=== PATIENT | male | born 1990 | race Caucasian/White ===

== ENCOUNTER 2024-09-19 11:51 | Outpatient (POV) | payer BC, SELFPAY ==
--- OUTSIDE RECORDS SUMMARY | 2024-05-14 17:30 | XMS_ITS ---
Author Organization [facility] Address [address] [place] [address] Care Team Providers Care Nurse Orthopaedic Name Role Phone Francisco Saenz MD Primary Care Provider Unavailab SALLY Delgado Unavailable [phone] Migration, Provider Unavailable Unavailable Allergies Allergen (clinical drug ingredient) Drug/Non Drug Allergy documented on EMR Reaction Allergy Type Onset Date Status SULFA (uncoded) Unknown Allergy Acti ve [facility] Conversion Encounter Medications Medication SIG (Take, [...] Provider Diagnosis [facility] [address] [place] [phone] 05/14/2024 Provider Migration EUSTACHIAN TUBE DIS NEC [...] Progress Notes * SARAY WHEATLEY DDOB:[birth year] (33 yo M)Acc No.[id number]:05/14/2024 Patient: SARAY CARDENSA Provider: Rosamaria Lopez :1990 A ge:33 Y S ex:Male Date:05/14/2024 Address:[address] [place] [address] Pcp:Francisco Saenz MD Subjective: * Chief Complaints: [...] Electronic signature of Prov ider Migration on 09/19/2024 at 11:56 AM EDT Sign off status: Pending * Provider: Rosamaria Lopez Date: 0 05/14/2024 Generated for Hemant brand/Terri/Nadegeitting on: 0 09/19/2024 11:56 AM EDT
--- OUTSIDE RECORDS SUMMARY | 2024-09-19 11:56 | XMS_ITS | Clinical Summary ---
Author Organization Healthcare Address [address] [place] [address] Care Team Providers Care Principal Systems Architect Name Role Phone Unavailable Primary Care Provider Unavailabl e Encounters Date Type Department Care Team Description 09/14/2024 [facility] Orders Community [facility] [address] [place] [address] Jozef Roberson MD Left sided sciatica (Primary Dx) from Last 3 Months Social History Tobacco Use Types Packs/Day Years Used Date Smoking Tobacco: Never Assessed Sex and Gender Information Value Date Recorded Sex Assigned at Not on file Legal Sex Male 9:23 AM EDT Gender Identity Not on file Sexual Orientation Not on file Plan of Treatment Not on file
--- OUTSIDE RECORDS SUMMARY | 2024-09-19 11:56 | XMS_ITS | Patient Health Record ---
Author Organization [facility] Address [address] [place] [address] Care Team Providers Care Executive Producer Promos Name Role Phone Francisco Saenz MD Primary Care Provider Unavailab SALLY Delgado Unavailable [phone] Migration, Provider Unavailable Unavailable Allergies Allergen (clinical drug ingredient) Drug/Non Drug Allergy documented on EMR Reaction Allergy Type Onset Date Status SULFA (uncoded) Unknown Allergy Acti ve Reason For Referral No Information Medications Medication SIG (Take, Route, Frequency, Duration) Notes Start Date End Date Status Triamcinolone Acetonide 0.025 % 1 adryan applied topically 3 times a day for 7 day(s) 04/02/2012 Active NASONEX 50 MCG/INH 2 SPRAY(S) INTRANASALLY ONCE A DAY for 30 DAY(S) *Please review for potential replacement for e-prescription and drug interaction check* 04/02/2012 Active Problems Problem Type SNOMED Code ICD Code Onset Dates Problem Status W/U Status Risk Notes Problem Cerumen (40837882) Cerumen (380.4) Active confirmed Problem Chronic rhinitis (72160547) Chronic rhinitis (472.0) Active confirmed Problem Eustachian tube disorder (38531355) EUSTACHIAN TUBE DIS NEC (381.89) Active confirmed Problem Hypertrophy of nasal turbinates (81439276) HYPERTRPH NASAL TURBINAT (478.0) Active confirmed Problem Dermatitis (272280986) DERMATITIS NOS (692.9) Active confirmed Problem Deviated nasal septum (655493218) septal deviation (470) Active confirmed Encounters Encounter Location Date Provider Diagnosis [facility] [address] [place] [address] 05/14/2024 Provider Migration EUSTACHIAN TUBE DIS NEC 381.89 and DERMATITIS NOS 692.9 Assessments Encounter Date Diagnosis (ICD Code) Assessment Notes Treatment Notes Treatment Clinical Notes Section Notes 05/14/2024 EUSTACHIAN TUBE DIS NEC (ICD9-CM - 381.89) 05/14/2024 DERMATITIS NOS (ICD9-CM - 692.9) Plan Of Treatment No Information Insurance Providers Payer Name Payer Address Payer Phone Subscriber Number Group Number Insured Name Patient Relationship to Insured Coverage Start Date Coverage End Date [facility] [address] [place] [address] [id number] SARAY WHEATLEY Self - patient is the insured Medical (General) History Medical History History ICD Code SEE ROS
--- OUTSIDE RECORDS SUMMARY | 2024-09-19 11:57 | XMS_ITS | Encounter Summary ---
Author Organization Healthcare Address [address] [place] [phone] Care Team Providers Care Manager Training And Development Name Role Phone Unavailable Primary Care Provider Unavailabl e Reason for Referral * Consultation (Routine) - Authorized Specialty Diagnoses / Procedures Referred By Contact Referred To Contact Physical Medicine and Rehabilitation Diagnoses Left sided sciatica Jozef Roberson MD [address] [place] [address] Phone: tel: fax: Melissa Bernstein, [address] [place] [address] Phone: tel: fax: Referral ID Status Reason Start Date Expiration Date Visits Requested Visits Authorized [id number] Authorized Specialty Services Required 09/14/2024 03/16/2026 1 1 Encounter Details Date Type Department Care Team (Late st Contact Info) Description 09/14/2024 [facility] Community [facility] [address] [place] [address] Jozef Roberson MD [address] [place] [address] Left sided sciatica (Primary Dx) Social History Tobacco Use Types Packs/Day Years Used Date Smoking Tobacco: Never Assessed Sex and Gender Information Value Date Recorded Sex Assigned at Not on file Legal Sex Male 9:23 AM EDT Gender Identity Not on file Sexual Orientation Not on file documented as of this encounter Plan of Treatment Scheduled Referrals Name Type Priority Associated Diagnoses Order Schedule Ambulatory referral to Physical Medicine Rehab Outpatient Referral Routine Left sided sciatica Expected: 09/21/2024, Expires: 03/18/2026 documented as of this encounter Visit Diagnoses Diagnosis Left sided sciatica- Primary Sciatica documented in this encounter
--- NOTE | 2024-09-19 12:32 | A.OFFVIS_ITS ---
HPI Data of Consult Patient: new to practice Consult date: 09/19/24 Requesting Physician: Ying Fletcher APRN Primary Care Provider: Jozef Roberson MD Reason for consult: Low back pain, left hip pain History of present illness: Mr. Lilly is a 33 year old male who presents today as a new patient. He is a referral from Dr. Roberson's office. Today he currently rates his pain a 3 out of 10 however does state that this morning it was a 7 out of 10. Patient states that he has had a TENS unit morning long along with a heating pad and did take his gabapentin before coming to our appointment. Patient states the pain is all in his low back along the left side into his hip and upper leg. Patient states that he did have pain similar to this back in 2017 however was not as severe. Patient ended up seeing a provider who did some fascia manipulation and it did help and ease off to where he does not had any problems since. Patient states that over the last week or so he did start to have a very severe pain all in that same location. Patient states that last week it was a 10 out of 10 and he described it as the worst pain ever. He does describe it as a constant achy sensation that is worse with prolonged positioning such as sitting or laying down. He does state that he has still continued the exercise that he was taught by the previous provider and has been popping his SI joint on a regular basis including stretching and does seem like this helps some. He has had some massage therapy and states that helped temporarily. Patient did try other medications including oral steroids, diclofenac and gabapentin with some help. Patient denies any previous surgery or injection history. Patient does state that he is very concerned that they do have a trip scheduled to leave for [place] on the of this month and is really worried due to the worsening pain symptoms. Patient does state he is interested in any options we may be able to provide as the pain is interfering with his ability to perform activities of daily living such as cooking and cleaning. His Chandrakant has been reviewed and is appropriate. Pain at rest (0-10 scale): 7 Has patient had previous pain injection?: No Conservative treatment options previously tried: NSAIDS (Minimal changes), Home exercise plan (Longer than 12 weeks) and Massage (Temporary relief) cc:: CC: Ying Fletcher APRN [facility] Disclaimer: The information contained in this section may have been updated after the patient was seen, as this information can be updated by other users. Medical History Pre-hypertension Surgical History History of appendectomy Family History Father Cancer Diabetes Hypertension Sister Cancer Diabetes Hypertension Grandfather Heart attack Hypertension Mother Hypertension Social History Smoking Status: Never smoker alcohol intake: never substance use type: denies use current occupational status: employed Travel in the last 8 weeks?: Outside the [facility] Review of Systems Review of Systems Review of systems:: pertinent systems reviewed and negative unless documented below Review of systems (narrative): Review of Systems: General: No recent weight changes, no fever, no sleep disturbances Respiratory: No cough, no shortness of air, no recurring pulmonary infections Cardiovascular/peripheral vascular: No chest pain, no palpitations, no edema, no shortness of breath Gastrointestinal: No new onset incontinence, normal bowel movements reported Genitourinary: No new onset incontinence Musculoskeletal: Low back pain, left-sided, left hip pain Psychiatric: [Normal mood/affect] Neurological: [Denies weakness in extremities], [denies balance issues] Meds Home Medications and Allergies Home Medications ?Medication ?Instructions ?Recorded ?Confirmed ?Type No Known Home Medications 10/15/2210/12 History New Prescriptions to Start Prescriptions: Allergies Allergy/AdvReac Type Severity Reaction Status Date / Time Sulfa (Sulfonamide Allergy Mild Verified 11/05/22 11:40 Antibiotics) Objective Narrative: Physical Exam: General: Alert and oriented x3, no acute distress, pleasant and cooperative Lungs: Respirations even and unlabored, symmetrical chest expansion Eyes: PERRL Musculoskeletal: Flexion and extension of lumbar [spine] somewhat guarded secondary to pain, [antalgic gait noted] point tenderness along left SI with positive left Florencia's, Pa's, Gaenslen's, compression and distraction exam Neurological: Speech clear, no gross sensory deficit Assessment and Plan *Assessment and plan (1) Sacroiliitis: Status: Acute Category: Medical Code(s): M46.1 - Sacroiliitis, not elsewhere classified Plan Patient is experiencing worsening pain along the low back and left hip. They did have limited range of motion of the lumbar spine along with point tenderness along left SI joint and a left bilateral Florencia's, Pa's, Gaenslen's, compression and distraction exam. I did discuss with the patient that I do believe they would benefit from left SI injections. Risk and benefits were discussed with the patient and they would like to proceed forward with this option. Patient has tried and failed conservative therapy including oral medications, heat and ice, topicals, TENS unit, massage therapy and continued at home stretching exercise for longer than 12 weeks that was physician guided. Patient has this pain in the past around 2017 however has not had any additional episodes since that time. This will be a diagnostic SI injection with less than 1 mL of solution to be injected. If he does get significant improvement we will plan on repeating the injection when his pain does return with the possibility of a SI fusion in future. I will order the patient a compounded cream. Patient will be scheduled for left SI injection under fluoroscopy. Patient has been instructed to contact the clinic with any concerns before the next appointment. Dr. Swain has reviewed this note and agrees with this plan of care. This note was dictated using voice recognition software and make contain errors or omissions. All injections are used with Lidocaine or Bupivacaine and dexamethasone unless diagnostic in which no steroids are used.
[2024-09-19 12:57] VITALS: BP 160/111; PULSE 78; RESP 18; O2SAT 98; BMI 26.6
== END 2024-09-19 23:59 | disposition home or self-care (01) ==
PROVIDERS: PCP Internal Medicine Adolescent Medicine; Visit Provider Nurse Practitioner Family
DX: M46.1 Sacroiliitis, not elsewhere classified (principal); Z79.899 Other long term (current) drug therapy
CPT/HCPCS: 99202; G0463

== ENCOUNTER 2024-09-27 12:59 | Day surgery (SDC) | payer BC, SELFPAY ==
[2024-09-27 13:18] VITALS: BP 163/101; PULSE 101; RESP 18; O2SAT 97
[2024-09-27] MEDS: BUPIVACAINE 0.25% 10ML INJ 25 MG IJ (13:20)
[2024-09-27 13:21] VITALS: BP 158/96; PULSE 101; RESP 18; TEMP 36.6; O2SAT 98; BMI 26.6
[2024-09-27] MEDS: DEXAMETHASONE 10MG/ML 1ML VIAL 10 MG (13:22)
[2024-09-27] MEDS: LIDOCAINE 1% 5ML PF VIAL 5 ML (13:22)
[2024-09-27 13:30] VITALS: BP 136/87; PULSE 84; RESP 16; O2SAT 97
--- NOTE | 2024-09-27 13:37 | EXP.PAIN.PRO ---
Procedure Date: 09/27/24 Time: 13:15 Anesthesiologist:: Bucky Gan CRNA Complications:: None Pre-procedure Diagnosis:: Left sacroiliitis Post-procedure Diagnosis:: Same Indications for Procedure:: Patient is a very pleasant 33-year-old male who comes our clinic today for left sacroiliac joint injection. Patient describes left posterior hip pain as constant, dull, aching, intermittent. He reports pain increases at night. He has difficulty lying on his left side due to the posterior left hip pain. He reports difficulty transitioning from sitting to standing. He rates his pain 7/10. Procedure Details:: Procedure: Left sacroiliac injection under fluoroscopy Informed consent was obtained and the risk and benefits of the procedure were explained to the patient.~ The patient was taken to the procedure room and noninvasive monitors were placed including noninvasive blood pressure cuff and pulse oximeter.~ The patient was placed prone on the procedure table.~ The~ left hip was cleansed using Betadine as a cleansing solution.~ C-arm fluorosocpy was used to view the left SI joint.~ The skin and subcutaneous tissues were anesthetized using Lidocaine 1.5% and a 25-gauge needle.~ After this, a 22-gauge spinal needle was inserted under fluoroscopic guidance into the inferior aspect of the left SI joint.~ Omnipaque dye was injected and a good spread was seen throughout the joint.~ After this, approximately 5 mL of bupivacaine 0.25% and Depo-Medrol 40 mg was incrementally injected into the sacroiliac joint.~ The patient tolerated the procedure well with no complications.~ The patient was observed in the Pain Clinic for a period of 30-45 minutes, then discharged home neurologically intact.~ Plan and Disposition:: Patient was discharged without incident.
== END 2024-09-27 13:30 | disposition home or self-care (01) ==
PROVIDERS: PCP Internal Medicine Adolescent Medicine; Visit Provider Nurse Anesthetist, Certified Registered
DX: M46.1 Sacroiliitis, not elsewhere classified (principal); R03.0 Elevated blood-pressure reading, without diagnosis of hypertension; Z88.2 Allergy status to sulfonamides; Z79.899 Other long term (current) drug therapy
CPT/HCPCS: 64450; 77002; J0665; J1100; J2003

== ENCOUNTER 2024-10-31 14:04 | Outpatient (POV) | payer BC, SELFPAY ==
--- OUTSIDE RECORDS SUMMARY | 2024-05-14 17:30 | XMS_ITS ---
Author Organization [facility] Address [address] [place] [address] Care Team Providers Care Waiter/Waitress Economy Class Name Role Phone Francisco Saenz MD Primary Care Provider Unavailab SALLY Delgado Unavailable [phone] Migration, Provider Unavailable Unavailable Allergies Allergen (clinical drug ingredient) Drug/Non Drug Allergy documented on EMR Reaction Allergy Type Onset Date Status SULFA (uncoded) Unknown Allergy Acti ve [facility] Conversion Encounter Medications Medication SIG (Take, Route, Frequency, Duration) Notes Start Date End Date Status Triamcinolone Acetonide 0.025 % 1 adryan applied topically 3 times a day for 7 day(s) 04/02/2012 Active NASONEX 50 MCG/INH 2 SPRAY(S) INTRANASALLY ONCE A DAY for 30 DAY(S) *Please review for potential replacement for e-prescription and drug interaction check* 04/02/2012 Active Encounters Encounter Location Date Provider Diagnosis [facility] [address] [place] [phone] 05/14/2024 Provider Migration EUSTACHIAN TUBE DIS NEC 381.89 and DERMATITIS NOS 692.9 Assessments Encounter Date Diagnosis (ICD Code) Assessment Notes Treatment Notes Treatment Clinical Notes Section Notes 05/14/2024 EUSTACHIAN TUBE DIS NEC (ICD9-CM - 381.89) 05/14/2024 DERMATITIS NOS (ICD9-CM - 692.9) Plan Of Treatment Medication Medication Name Sig Start Date Stop Date Notes Triamcinolone Acetonide 0.025 % 1 adryan applied topically 3 times a day for 7 day(s) 04/02/2012 NASONEX 50 MCG/INH 2 SPRAY(S) INTRANASALLY ONCE A DAY for 30 DAY(S) 04/02/2012 *Please review for potential replacement for e-prescription and drug interaction check* Progress Notes * SARAY WHEATLEY DDOB:[birth year] (34 yo M)Acc No.[id number]:05/14/2024 Patient: SARAY CARDENAS Provider: Rosamaria Lopez :1990 A ge:33 Y S ex:Male Date:05/14/2024 Address:[address] [place] [address] Pcp:Francisco Saenz MD Subjective: * Chief Complaints: * 1 . [facility] To [facility] Conversion Encounter. * Medical History: * Allergies: S ULFA. Objective: * Vitals: Assessment: * Assessment: 1. E USTACHIAN TUBE DIS NEC - 381.89 (Primary) 2 . D ERMATITIS NOS - 692.9? Plan: * Treatment: 2. D ERMATITIS NOS Start Triamcinolone Acetonide Cream, 0.025 %, 1 adryan, applied topically, 3 times a day, 7 day(s), 1, Refills 0. * Billing Information: * Visit Code: * Procedure Codes: * Electronic signature of Prov ider Migration on 10/31/2024 at 02:07 PM EDT Sign off status: Pending * Provider: Rosamaria Lopez Date: 0 05/14/2024 Generated for Hemant brand/Terri/Marcos on: 0 10/31/2024 02:07 PM EDT
--- OUTSIDE RECORDS SUMMARY | 2024-10-31 14:08 | XMS_ITS | Clinical Summary ---
Author Organization Healthcare Address [address] [place] [address] Care Team Providers Care Model Artists' Name Role Phone Unavailable Primary Care Provider Unavailabl e Encounters Date Type Department Care Team Description 09/14/2024 Community Orders Community Practice [address] [place] [address] Jozef Roberson MD Left sided sciatica (Primary Dx) from Last 3 Months Social History Tobacco Use Types Packs/Day Years Used Date Smoking Tobacco: Never Assessed Sex and Gender Information Value Date Recorded Sex Assigned at Not on file Legal Sex Male 9:23 AM EDT Gender Identity Not on file Sexual Orientation Not on file Plan of Treatment Not on file [facility] [id number] ANTHE[facility]
--- OUTSIDE RECORDS SUMMARY | 2024-10-31 14:08 | XMS_ITS | Encounter Summary ---
Author Organization Healthcare Address [address] [place] [address] Care Team Providers Care Cable Dispatcher Name Role Phone Unavailable Primary Care Provider Unavailabl e Reason for Referral * Consultation (Routine) - Authorized Specialty Diagnoses / Procedures Referred By Contact Referred To Contact Physical Medicine and Rehabilitation Diagnoses Left sided sciatica Jozef Roberson MD [address] [place] [address] Phone: tel: fax: Melissa Bernstein M, DO [address] [place] [address] Phone: tel: fax: Referral ID Status Reason Start Date Expiration Date Visits Requested Visits Authorized [id number] Authorized Specialty Services Required 09/14/2024 03/16/2026 1 1 Encounter Details Date Type Department Care Team (Late st Contact Info) Description 09/14/2024 [facility] [address] [place] [address] Jozef Roberson MD [address] [place] [address] Left sided sciatica (Primary Dx) Social History [...]
--- OUTSIDE RECORDS SUMMARY | 2024-10-31 14:08 | XMS_ITS | Patient Health Record ---
Author Organization [facility] Address [address] [place] [address] Care Team Providers Care Linux Architect Name Role Phone Francisco Saenz MD Primary Care Provider Unavailab SALLY Delgado Unavailable [phone] Migration, Provider Unavailable Unavailable Allergies Allergen (clinical [...] Status W/U Status Risk Notes Problem Cerumen (15195249) Cerumen (380.4) Active confirmed Problem Chronic rhinitis (91323882) Chronic rhinitis (472.0) Active confirmed Problem Eustachian tube disorder (68117377) EUSTACHIAN TUBE DIS NEC (381.89) Active confirmed Problem Hypertrophy of nasal turbinates (91374109) HYPERTRPH NASAL TURBINAT (478.0) Active confirmed Problem Dermatitis (815320999) DERMATITIS NOS (692.9) Active confirmed Problem Deviated nasal septum (708126013) septal deviation (470) Active confirmed Encounters Encounter Location Date Provider Diagnosis [facility] [address] [place] [address] 05/14/2024 Provider Migration EUSTACHIAN TUBE DIS NEC [...] Coverage Start Date Coverage End Date [facility] [address] [place] [address] [id number] SARAY WHEATLEY Self - patient is the insured Medical (General) History Medical History History ICD Code SEE ROS
--- NOTE | 2024-10-31 14:39 | EXP.PAIN.SOA ---
[facility] Disclaimer: The information contained in this section may have been updated after the patient was seen, as this information can be updated by other users. Medical History Pre-hypertension Surgical History History of appendectomy Family History Father Cancer Diabetes Hypertension Sister Cancer Diabetes Hypertension Grandfather Heart attack Hypertension Mother Hypertension Social History Smoking Status: Never smoker alcohol intake: never substance use type: denies use current occupational status: employed Travel in the last 8 weeks?: None PM Subjective & Objective Subjective Subjective:: Patient is a pleasant 34-year-old male who presents today for follow-up of his left SI injection on 09/27/2024. Today he rates his pain a 1 out of 10. Patient does still have some of the left hip pain however does state it is much more manageable than what it was previously. Patient states that the first week he had about 75% improvement however now he is even rating better improvement at 95% relief. Patient states the pain is definitely much more manageable. Patient is prescribed compounded cream and states that that has helped a little bit as well however felt like a lot of his pain was more nerve related. Patient does state that they are still trying to get approval for the advanced imaging to make sure nothing else is going on. Patient denies any other changes. His Chandrakant has been reviewed and is appropriate. Review of Systems: General: No recent weight changes, no fever, no sleep disturbances Respiratory: No cough, no shortness of air, no recurring pulmonary infections Cardiovascular/peripheral vascular: No chest pain, no palpitations, no edema, no shortness of breath Gastrointestinal: No new onset incontinence, normal bowel movements reported Genitourinary: No new onset incontinence Musculoskeletal: Low back pain Psychiatric: [Normal mood/affect] Neurological: [Denies weakness in extremities], [denies balance issues] Pain at rest (0-10 scale): 1 Objective Objective:: Physical Exam: General: Alert and oriented x3, no acute distress, pleasant and cooperative Lungs: Respirations even and unlabored, symmetrical chest expansion Eyes: PERRL Musculoskeletal: Flexion and extension of lumbar [spine] within normal limits Neurological: Speech clear, no gross sensory deficit Has patient had previous pain injection?: Yes Percent improvement in pain since last injection: 95% Conservative treatment options previously tried: Home exercise plan Length of treatment: Longer than 12 weeks Meds Home Medications and Allergies Home Medications ?Medication ?Instructions ?Recorded ?Confirmed ?Type diclofenac sodium 75 mg 75 mg PO BIDP PRN Pain 09/19/24 09/27/24 History tablet,delayed release gabapentin 100 mg capsule 100 mg PO DAILY Pain 09/19/24 09/27/24 History New Prescriptions to Start Prescriptions: Allergies Allergy/AdvReac Type Severity Reaction Status Date / Time Sulfa (Sulfonamide Allergy Mild Verified 11/05/22 11:40 Antibiotics) Assessment and Plan *Assessment and plan (1) Sacroiliitis: Status: Acute Category: Medical Code(s): M46.1 - Sacroiliitis, not elsewhere classified Plan Patient has had significant improvement following his SI injections and does not require any additional injection therapy at this time. Patient will return to clinic in 6 weeks for reevaluation of symptoms and plan of care. Patient has been instructed to contact the clinic with any concerns before the next appointment. Dr. Swain has reviewed this note and agrees with this plan of care. This note was dictated using voice recognition software and make contain errors or omissions. All injections are used with Lidocaine, Bupivacaine and dexamethasone. Occasionally urine drug screen is needed to verify patient's compliance with our office pain contract. This is ordered based off specific treatments related to chronic pain with the potential to abuse certain medications.
[2024-10-31 15:04] VITALS: BP 136/86; PULSE 79; RESP 14; O2SAT 99; BMI 26.6
== END 2024-10-31 23:59 | disposition home or self-care (01) ==
LOC: SC.PAIN 14:06
PROVIDERS: PCP Nurse Practitioner Family; Visit Provider Nurse Practitioner Family
DX: M46.1 Sacroiliitis, not elsewhere classified (principal)
CPT/HCPCS: 99212; G0463

== ENCOUNTER 2025-01-04 17:00 | Outpatient (RCR) | payer BC, SELFPAY ==
--- NOTE | 2024-12-21 15:53 | HMH.PTOPEV ---
PT Evaluation Rehab PT Outpatient Evaluation Start: 12/21/24 14:48 Freq: Status: Active Protocol: Document 12/21/24 14:49 FILICOLE (Rec: 12/21/24 15:53 JARON [id number]) E-signed By Ying Multani, PT Outpatient Therapy Subjective History Subjective History Pt is a 34 y/o male who reports onset of severe left- sided low back and radicular symptoms in August of 2024. Pt reports having an injection in his sacroiliac joint through pain management on 09/27/24 with improvement in symptoms. Per records, pt had a lumbar spine MRI at [facility] on 11/11/24 with impression of There is L5-S1 disc degeneration with a superimposed disc herniation contacting the ascending left S1 nerve root, correlate for clinical symptoms of left s1 radiculopathy. there is mild bilateral foraminal stenosis at this level, but no significant spinal canal stenosis. Pt reports symptoms have greatly improved since the injury. Pt reports current symptoms of mild pain of the left-sided low back, pt denies more distal symptoms or paresthesia. Pt denies b /b dysfunction. Pt reports intermittent tightness of the left hamstring and calf aggravated by activation of the hamstring. Pt reports he is still very cautious with bending/lifting and functional activities. Pt states he would like to work on core strengthening and proper lifting mechanics in PT to prevent exacerbation of symptoms or reinjury. Pt denies further comorbidities. Pt reports he is scheduled for a consult with Dr. Nielson next . Work: [employer] History: Pre-hypertension New diagnosis of No cancer in past 12 months? Chief Complaint Pain,Stiff Symptom Type Dull,Other Symptoms Relieved By Prescription Meds Symptom Description Intermittent Level of pain today 0 (0-10) Pain scale - at its 0 best (0-10) Pain scale - at its 1 worst (0-10) Lumbopelvic Eval Posture Lumbar Spine Posture Decreased Lordosis Standing Position Assistive device Assistive Devices None / NA Gait Observation General Gait Pattern No Deviations/Normal Observation Palapation tenderness bilateral paraspinal Yes: L tenderness buttock tenderness Yes: L piriformis, glute med/min Lumbar/Sacral Tenderness,Muscle Guarding Palpation Findings Lumbar/Sacral 2/4 TTP Palpation Overall Comment Accessory Movement L-spine Vertebrae Central P/A [place],Left P/A [place] Accessory Movements that Elicit Symptoms L5 bilateral S1 bilateral Range of Motion Lumbar Spine Active 50 Flexion Range of Motion (degrees) Lumbar Spine Active 20 Extension Range of Motion (degrees) Left Lumbar Spine 15 Lateral Flexion Active Range of Motion (degrees) Right Lumbar Spine 10 Lateral Flexion Active Range of Motion (degrees) Manual Muscle Test Left Knee Extension 5 Normal Strength Grade Knee Flexion 5 Normal Strength Grade Hip Flexion Strength 5 Normal Grade Hip Abduction 5 Normal Strength Grade Hip Extension 4 Good Strength Grade Ankle Dorsiflexion 5 Normal Strength Grade DTR Rt Patellar 2+ Lt Patellar 2+ Altered Sensation Bilateral Comment equal and intact to light touch sensation Special Tests Sciatic Nerve Positive Left Tension Test Unilateral Straight Positive Left Leg Raise (Lasegue) Test Oswestry Index Section 1 Pain Intensity The pain comes and goes and is very mild Section 2 Personal Care ( change my way of washing or dressing in order to avoid Washing,Dresing) pain Section 3 Lifting I can lift heavy weights without extra pain Section 4 Walking I have no pain when walking Section 5 Sitting I can sit in any chair for as long as I like Section 6 Standing I can stand as long as I want without pain Section 7 Sleeping I get no pain in bed Section 8 Social Life My social life is normal and gives me no extra pain Section 9 Traveling I get no pain when traveling Section 10 Changing Degreee of My pain is getting better Pain Score and Risk Level Oswestry Score 0 Oswestry Risk Level No Disability Miscellaneous Dx PT Eval Objective Objective +slump test on LLE Core strength: 4/5 Outpatient Therapy Assessment Impairments Problems/ Palpation Tenderness,Impaired Range of Motion,Impaired Impairmments Strength,Impaired Walking,Impaired Standing,Impaired Sitting,Impaired Lifting,Impaired Squatting,Impaired Bending,Subjective C/O Pain,Impaired Self Care/Self Management Prognosis Rehab Potential Good Clinical Impression Consistent with Yes Diagnosis PT Patient Goals PT Patient Goals PT Short Term 2-3 weeks: Patient Goals 1. Verbalize compliance with HEP to assist with progress. 2. Improve lumbar AROM flex to at least 60 to assist with function. 3. Demonstrate proper lifting mechanics to prevent reinjury. PT Half-Way Patient 4-6 weeks: Goals 1. Improve tenderness to palpation of the L piriformis muscle to 0-1/4 to assist with pain and muscle extensibility. 2. Improve Lumbar AROM flex to 70-80 to assist with function. 3. Lift 40# from floor to waist level with proper mechanics without pain to assist with ADLs/caregiver duties. 4. Improve pain at worst to 0/10 to improve overall QOL . 5. Report improved fear avoidance behavior with bending /lifting/twisting to improve overall QOL/function. Outpatient Therapy Plan of Care Treatment Plan May Include Therapeutic Exercise Yes Including Home Exercise Program Manual Therapy Yes Techniques Neuromuscular Re- Yes education Therapeutic Yes Activities to Return to Previous Functional/Work Level ADL/Self Care Yes Education Mechanical Traction Yes Dry Needling Yes Thermal Modalities Yes Electrical Yes Stimulation Ultrasound/ Yes Phonophoresis Iontophoresis Yes Massage Yes Eval/Re-Eval Yes Frequency Times per week 1-2 Duration Number of Weeks 4-6 Addendums This patient is a No candidate for social or vocational rehab ? Patient/Guardian Yes verbally acknowledges understanding of treatment program and consents to further treatment? Patient/Guardian Yes verbally acknowledges understanding of diagnosis, prognosis and goals for treatment? Eval Complexity PT Charges 94802 - Low Complexity Shoulder/Elbow Eval Shoulder Objective Measurements Elbow Objective Measurements PHYSICIAN CERTIFICATION: I certify the specified therapy services for Govind Lilly are required, authorized, and reviewed every 30 days.
== END 2025-01-04 23:59 | disposition home or self-care (01) ==
LOC: PT 17:00
PROVIDERS: PCP Nurse Practitioner Family; Visit Provider Nurse Practitioner Family
DX: M51.9 Unspecified thoracic, thoracolumbar and lumbosacral intervertebral disc disorder (principal)
CPT/HCPCS: 97110; 97161; 97530

== ENCOUNTER 2025-01-19 16:00 | Outpatient (RCR) | payer BC, SELFPAY | END 2025-01-19 23:59 | disposition home or self-care (01) | LOC: PT 16:00 | PROVIDERS: PCP Nurse Practitioner Family; Visit Provider Nurse Practitioner Family | DX: M51.9 Unspecified thoracic, thoracolumbar and lumbosacral intervertebral disc disorder (principal) | CPT/HCPCS: 97110; 97530 ==

== ENCOUNTER 2025-02-09 12:38 | Outpatient (CLI) | payer BC, SELFPAY ==
--- OUTSIDE RECORDS SUMMARY | 2024-05-14 17:30 | XMS_ITS ---
Author Organization [facility] Address [address] [place] [address] Care Team Providers Care Real Estate Firm Manager Name Role Phone Francisco Saenz MD Primary Care Provider Unavailab SALLY Delgado Unavailable [phone] Migration, Provider Unavailable Unavailable Allergies Allergen (clinical drug ingredient) Drug/Non Drug Allergy documented on EMR Reaction Allergy Type Onset Date Status SULFA (uncoded) Unknown Allergy Acti ve [facility] Conversion Encounter Medications Medication SIG (Take, Route, Frequency, Duration) Notes Start Date End Date Status Triamcinolone Acetonide 0.025 % 1 adryan applied topically 3 times a day; Duration: 7 day(s) 04/02/2012 Active NASONEX 50 MCG/INH 2 SPRAY(S) INTRANASALLY ONCE A DAY; Duration: 30 DAY(S) *Please review for potential replacement for e-prescription and drug interaction check* 04/02/2012 Active Encounters Encounter Location Date Provider Diagnosis [facility] [address] [place] [phone] 05/14/2024 Provider Migration EUSTACHIAN TUBE DIS NEC [...] 1 adryan applied topically 3 times a day; Duration: 7 day(s) 04/02/2012 NASONEX 50 MCG/INH 2 SPRAY(S) INTRANASALLY ONCE A DAY; Duration: 30 DAY(S) 04/02/2012 *Please review for potential replacement for e-prescription and drug interaction check* Progress Notes * SARAY WHEATLEY DDOB:[birth year] (34 yo M)Acc No.[id number]:05/14/2024 Patient: SARAY CARDENAS Provider: Rosamaria Lopez :1990 A ge:33 Y S ex:Male Date:05/14/2024 Address:[address] [place] [address], [place] [address] Pcp:Francisco Saenz MD Subjective: * Chief Complaints: [...] day, 7 day(s), 1, Refills 0. * Images: Billing Information: * Visit Code: * Procedure Codes: * Electronic signature of Prov ider Migration on 02/09/2025 at 12:41 PM EDT Sign off status: Pending * Provider: Rosamaria Lopez Date: 0 05/14/2024 Generated for Hemant brand/Terri/Jodysmitting on: 1 12:41 PM EDT
--- OUTSIDE RECORDS SUMMARY | 2025-02-09 12:41 | XMS_ITS | Clinical Summary ---
Author Organization Healthcare Address [address] [place] [address] Care Team Providers Care Sheet Sewer Name Role Phone Unavailable Primary Care Provider Unavailabl e Social History Tobacco Use Types Packs/Day Years Used Date Smoking Tobacco: Never Assessed Sex and Gender Information Value Date Recorded Sex Assigned at Not on file Legal Sex Male 9:23 AM EDT Gender Identity Not on file Sexual Orientation Not on file Plan of Treatment Not on file Insurance Jackie [facility] [place] [id number] ANTHEM
--- OUTSIDE RECORDS SUMMARY | 2025-02-09 12:41 | XMS_ITS | Encounter Summary ---
Author Organization Healthcare Address [address] [place] [address] Care Team Providers Care Bartender Server Name Role Phone Unavailable Primary Care Provider Unavailabl e Reason for Referral * Consultation (Routine) - Authorized Specialty Diagnoses / Procedures Referred By Contact Referred To Contact Physical Medicine and Rehabilitation Diagnoses Left sided sciatica Jozef Roberson MD [address] [place] [address] Phone: tel: fax: Melissa Bernstein M, DO [address] [place] [address] Phone: tel: fax: Referral ID Status Reason Start Date Expiration Date Visits Requested Visits Authorized [id number] Authorized Specialty Services Required 09/14/2024 03/16/2026 1 1 Encounter Details Date Type Department Care Team (Late st Contact Info) Description 09/14/2024 Community [facility] [address] [place] [address] Jozef Roberson MD [address] [place] [address] Left sided sciatica (Primary Dx) Social History [...]
--- OUTSIDE RECORDS SUMMARY | 2025-02-09 12:41 | XMS_ITS | Patient Health Record ---
Author Organization [facility] Address [address] [place] [address] Care Team Providers Care Sewer Cleaner Name Role Phone Francisco Saenz MD Primary Care Provider Unavailab SALLY Delgado Unavailable [phone] Migration, Provider Unavailable Unavailable Allergies Allergen (clinical [...] Status W/U Status Risk Notes Problem Cerumen (03823044) Cerumen (380.4) Active confirmed Problem Chronic rhinitis (84452975) Chronic rhinitis (472.0) Active confirmed Problem Eustachian tube disorder (62386047) EUSTACHIAN TUBE DIS NEC (381.89) Active confirmed Problem Hypertrophy of nasal turbinates (19990691) HYPERTRPH NASAL TURBINAT (478.0) Active confirmed Problem Dermatitis (837279936) DERMATITIS NOS (692.9) Active confirmed Problem Deviated nasal septum (748720713) septal deviation (470) Active confirmed Encounters Encounter Location Date Provider Diagnosis [facility] [address] [place] [address] 05/14/2024 Provider Migration EUSTACHIAN TUBE DIS NEC [...] Coverage Start Date Coverage End Date [facility] [address] [place] [address] [id number] ASRAY WHEATLEY Self - patient is the insured Medical (General) History Medical History History ICD Code SEE ROS
--- NOTE | 2025-02-09 12:42 | XR_ITS ---
FINAL REPORT CLINICAL HISTORY: PAIN COMPARISON: None FINDINGS: LEFT FOOT Three views of the left foot demonstrate no acute fracture or dislocation. The visualized joint spaces are normally aligned. The soft tissues are unremarkable. IMPRESSION: No acute bony abnormality. Reviewed, Interpreted and Dictated by Lior Hartley MD Transcribed by Geeta Purvis Authenticated and [facility]
== END 2025-02-09 23:59 | disposition home or self-care (01) ==
LOC: RAD 12:39
PROVIDERS: PCP Internal Medicine Adolescent Medicine; Visit Provider Nurse Practitioner Family
DX: M79.672 Pain in left foot (principal)
CPT/HCPCS: 73630